=== PATIENT | female | born 1970 | race Caucasian/White ===

== ENCOUNTER 2016-07-17 19:34 | Emergency (ER) | payer MEDICAID ==
[~2016-07-17] VITALS: Ht 152.4 cm; Wt 74.8 kg
[~2016-07-17 19:34] MED LIST: CYCL-10 PO; GABA300T25 PO; LORA-258 PO; NAPR375T2 PO; PRO-AIR INH; PROP1TAB3 PO; SERT50TA PO; VALA500T PO; ZOLP10TA2 PO; ZOLP5TAB2 PO
[2016-07-17 19:51] VITALS: BP 128/92; PULSE 102; RESP 18; TEMP 97.6; O2SAT 98
--- NOTE | 2016-07-17 19:55 | NUR ---
Patient to ER bed 6 to gown for evaluation. Side rails up. Report given to Zay CAMARGO. Placed by Ishaan CAMARGO.
--- NOTE | 2016-07-17 20:00 | NUR ---
Pt states that on wednesday she had a steriod injection in her lower back and the following day she started having 10/10 lower back pain that shoots down her legs. This was her first show for slipped disk. Pt states she hasn't been to sleep or eat. She staes she has been getting chills and night sweats. Skin warm, dry, and normal. AAOx4. Will continue to monitor. No other injuries or complaints mentioned/noted. No distress noted.
--- NOTE | 2016-07-17 21:10 | NUR ---
ER Dr. Walker at bedside examining patient.
[2016-07-17] MEDS ORDERED: DIPHENHYDRAMINE HCL 50 MG CAPSULE PO ONE (21:30)
[2016-07-17] MEDS ORDERED: KETOROLAC TROMETHAMINE 60 MG/2 ML VIAL IM ONE (21:30)
[2016-07-17 21:49] VITALS: BP 128/92; PULSE 90; RESP 18; TEMP 97.6; O2SAT 98
--- NOTE | 2016-07-17 21:49 | NUR ---
Patient given written and verbal discharge instructions and verbalizes understanding. ER MD discussed with patient the results and treatment provided. Patient in stable condition. ID arm band removed. IV catheter removed intact and dressing applied, no active bleeding. Patient educated on pain management and to follow up with PMD. Pain Scale 2/10. Opportunity for questions provided and answered.
== END 2016-07-17 21:49 | disposition home or self-care (01) ==
LOC: SED 19:34
DX: M54.5 Low back pain (principal); G89.29 Other chronic pain; J45.909 Unspecified asthma, uncomplicated; F32.9 Major depressive disorder, single episode, unspecified; Z88.5 Allergy status to narcotic agent
CPT/HCPCS: 96372; 99283; J1885; Q0163

== ENCOUNTER 2016-07-30 22:33 | Emergency (ER) | payer MEDICAID ==
[~2016-07-30] VITALS: Ht 154.9 cm; Wt 68.0 kg
[2016-07-30 22:37] VITALS: BP 123/61; PULSE 102; RESP 20; TEMP 97.2; O2SAT 100
--- NOTE | 2016-07-30 22:40 | NUR ---
Patient to ER bed 2 to gown for evaluation. Side rails up. Report given to Sherry CAMARGO.
--- NOTE | 2016-07-30 22:54 | NUR ---
Patient to ER C/O severe RUQ pain 02/07 with sudden onset resulting in abdominal bloating and distension. Patient states that she did not ate anything fatty, mild nausea, no vomiting. States that in the last 2 years she had some benign abdominal tumors which were removed 1 year ago and fears that the tumors may be back. Patient C/O SOB due to abdominal pressure, chest pressure non-radiating and lower back pain. Denies constipation/diarrhea. AAOx4, unlabored breathing, no signs of acute distress.
--- NOTE | 2016-07-30 22:57 | NUR ---
ER at bedside examining patient.
[2016-07-30] MEDS ORDERED: NACL 0.9% 1,000 ML IV ONE (23:15)
[2016-07-30] MEDS ORDERED: DIAZEPAM 10 MG/2 ML DISP.SYRIN IVP ONE (23:15)
[2016-07-30 23:18] LABS: BILIRUBIN,URINE NEGATIVE (NEGATIVE); COLOR,URINE YELLOW (YELLOW); GLUCOSE,URINE NEGATIVE (NEGATIVE); KETONES,URINE NEGATIVE (NEGATIVE); LEUKOCYTE ESTERASE ,URINE TRACE (NEGATIVE); NITRITE, URINE NEGATIVE (NEGATIVE); PH,URINE 7.5 (5.0-8.0); PROTEIN URINE NEGATIVE (NEGATIVE); UROBILINOGEN,URINE 0.2 (0.2-1.0)
--- NOTE | 2016-07-30 23:31 | NUR ---
# 22 gauge angiocath placed to left ac. Use of asceptic technique. Opsite placed over site. Blood return noted. Blood for lab drawn from site. Flushed with 10 cc of normal saline. No evidence of infiltration noted. Patient tolerated well.
[2016-07-30 23:42] LABS: EOSINOPHILS # (AUTO) 0.2 K/uL (0.0-0.4); MONOCYTES # (AUTO) 0.9 K/uL (0.0-1.0); NEUTROPHILS # (AUTO) 5.5 K/uL (1.8-7.7)
[2016-07-30 23:44] LABS: BLOOD, URINE TRACE (NEGATIVE); CLARITY/URINE HAZY (CLEAR)
[2016-07-30 23:45] LABS: BACTERIA,URINE MANY /HPF (None Seen); RBC,URINE 0-3 /HPF (0-3)
[2016-07-30] MEDS ORDERED: ONDANSETRON HCL 4 MG/2 ML VIAL IVP ONE (23:45)
[2016-07-30 23:46] LABS: MUCUS,URINE None Seen /LPF (None Seen)
[2016-07-30 23:50] LABS: BASOPHILS # (AUTO) 0.2 K/uL (0.0-0.2); BASOPHILS % (AUTO) 2.3 % (0.0-2.0); EOSINOPHILS % (AUTO) 1.9 % (0.0-4.0); HEMATOCRIT 38.2 % (36-48); HEMOGLOBIN 13.1 g/dL (12.0-16.0); LYMPHOCYTES # (AUTO) 2.1 K/uL (1.0-5.5); LYMPHOCYTES % (AUTO) 23.4 % (20.5-51.5); MEAN CORPUSCULAR HEMOGLOBIN 31 pg (27-31); MEAN CORPUSCULAR HGB CONC 34 % (32-36); MEAN CORPUSCULAR VOLUME 90 fL (79.0-98.0); MONOCYTES % (AUTO) 9.6 % (1.7-9.3); NEUTROPHILS % (AUTO) 62.8 % (40.0-70.0); PLATELET COUNT (AUTO) 202 K/uL (130-430); RED BLOOD CELL COUNT(AUTO) 4.24 MIL/uL (4.2-6.2); RED CELL DISTRIBUTION WIDTH 13.2 % (9.0-15.0); WHITE BLOOD COUNT (AUTO) 8.9 K/uL (4.8-10.8)
[2016-07-30 23:52] LABS: ANION GAP 6 (5-15); CALCIUM 9.1 mg/dL (8.4-11.0); CHLORIDE 106 mmol/L (98-107); CREATININE 0.91 mg/dL (0.55-1.30); GLUCOSE 101 mg/dL (70-99); POTASSIUM 3.4 mmol/L (3.5-5.1); SODIUM SERUM 140 mmol/L (136-145); UREA NITROGEN, BLOOD 16 mg/dL (8-21)
[2016-07-30 23:59] LABS: GFR AFRICAN AMERICAN 86 mL/min (>90)
[2016-07-31] LABS: ALANINE AMINOTRANSFERASE 37 U/L (12-78); ALBUMIN 3.5 g/dL (3.4-4.8); ASPARTATE AMINOTRANSFERASE 21 U/L (10-37); LIPASE 204 U/L (73-393); TOTAL BILIRUBIN 0.3 mg/dL (0.0-1.0); TOTAL PROTEIN, SERUM 6.9 g/dL (6.4-8.3)
--- NOTE | 2016-07-31 00:48 | NUR ---
Patient states that she feels much better, decrease in nausea and pain.
--- NOTE | 2016-07-31 01:09 | NUR ---
Patient given written and verbal discharge instructions and verbalizes understanding. ER MD Heredia discussed with patient the results and treatment provided. Patient in stable condition. ID arm band removed. IV catheter removed intact and dressing applied, no active bleeding. Rx of zofran, cipro, flexeril, motrin given. Patient educated on pain management and to follow up with PMD. Pain Scale 0/10. Opportunity for questions provided and answered.
[2016-07-31 01:33] VITALS: BP 131/91; PULSE 104; RESP 20; TEMP 98; O2SAT 96
== END 2016-07-31 01:09 | disposition home or self-care (01) ==
LOC: SED 22:33
DX: N39.0 Urinary tract infection, site not specified (principal); R07.89 Other chest pain; J45.909 Unspecified asthma, uncomplicated; Z88.5 Allergy status to narcotic agent
CPT/HCPCS: 36415; 71010; 80053; 81000; 81025; 83690; 84484; 85025; 87086; 93005; 96361; 96374; 96375; 99285; J2405; J3360; J7030

== ENCOUNTER 2016-09-18 12:07 | Emergency (ER) | payer MEDICAID ==
[~2016-09-18] VITALS: Ht 165.1 cm; Wt 72.6 kg
[~2016-09-18 12:07] MED LIST changes: -LORA-258 PO; -PROP1TAB3 PO; -VALA500T PO; -ZOLP10TA2 PO; -ZOLP5TAB2 PO
[2016-09-18 12:10] VITALS: BP_SYST 123
[2016-09-18] MEDS ORDERED: ALBUTEROL SULFATE 0.083% 2.5 MG/3 ML VIAL.NEB INH ONE ×2 (12:28→12:30)
[2016-09-18] MEDS ORDERED: IPRATROPIUM BROM 0.5 MG/2.5 ML VIAL.NEB (ATROVENT) INH ONE ×2 (12:28→12:30)
[2016-09-18] MEDS: PREDNISONE 20 MG TABLET PO ONE (12:49)
[2016-09-18] MEDS: DEXAMETHASONE SOD PHOSPHATE 10 MG/ML VIAL IM ONE (13:41)
[2016-09-18 14:15] VITALS: BP_SYST 123
== END 2016-09-18 14:15 | disposition home or self-care (01) ==
LOC: SED 12:07
DX: J45.901 Unspecified asthma with (acute) exacerbation (principal); Z88.5 Allergy status to narcotic agent
CPT/HCPCS: 96372; 99283; J1100; J7512

== ENCOUNTER 2016-10-27 17:44 | Emergency (ER) | payer MEDICAID ==
[~2016-10-27] VITALS: Ht 154.9 cm; Wt 70.3 kg
[2016-10-27 18:07] VITALS: BP_SYST 115
[2016-10-27] MEDS ORDERED: PIPERACILLIN/TAZO 3.38 GM in NS 50 ML IV ONE (18:45)
[2016-10-27] MEDS ORDERED: LORazepam 2 MG/ML VIAL (FOR ER USE) IVP ONE (18:45)
[2016-10-27] MEDS ORDERED: PIPERACILLIN/TAZOBACTAM 3.375 GM/VIAL (ZOSYN) IV ONE (19:27)
[2016-10-27 19:28] LABS: BASOPHILS # (AUTO) 0.1 K/uL (0.0-0.2); BASOPHILS % (AUTO) 0.8 % (0.0-2.0); EOSINOPHILS # (AUTO) 0.4 K/uL (0.0-0.4); EOSINOPHILS % (AUTO) 4.6 % (0.0-4.0); HEMATOCRIT 40.9 % (36-48); HEMOGLOBIN 13.8 g/dL (12.0-16.0); LYMPHOCYTES # (AUTO) 2.2 K/uL (1.0-5.5); LYMPHOCYTES % (AUTO) 24.8 % (20.5-51.5); MEAN CORPUSCULAR HEMOGLOBIN 30 pg (27-31); MEAN CORPUSCULAR HGB CONC 34 % (32-36); MEAN CORPUSCULAR VOLUME 90 fL (79.0-98.0); MONOCYTES # (AUTO) 0.6 K/uL (0.0-1.0); MONOCYTES % (AUTO) 6.5 % (1.7-9.3); NEUTROPHILS # (AUTO) 5.6 K/uL (1.8-7.7); NEUTROPHILS % (AUTO) 63.3 % (40.0-70.0); PLATELET COUNT (AUTO) 263 K/uL (130-430); RED BLOOD CELL COUNT(AUTO) 4.55 MIL/uL (4.2-6.2); RED CELL DISTRIBUTION WIDTH 12.2 % (9.0-15.0); WHITE BLOOD COUNT (AUTO) 8.9 K/uL (4.8-10.8)
[2016-10-27 19:54] LABS: CALCIUM 9.1 mg/dL (8.4-11.0); CREATININE 0.98 mg/dL (0.55-1.30); POTASSIUM 3.8 mmol/L (3.5-5.1)
[2016-10-27 19:58] LABS: ALBUMIN 3.9 g/dL (3.4-4.8); TOTAL BILIRUBIN 0.3 mg/dL (0.0-1.0); TOTAL PROTEIN, SERUM 7.2 g/dL (6.4-8.3)
[2016-10-27] MEDS ORDERED: HYDROmorphone 1 MG INJ. 1 MG/ML AMPUL IVP ONE (20:15)
[2016-10-27] MEDS ORDERED: ONDANSETRON HCL 4 MG/2 ML VIAL IVP ONE (20:15)
[2016-10-27 20:35] LABS: BILIRUBIN,URINE NEGATIVE (NEGATIVE); BLOOD, URINE NEGATIVE (NEGATIVE); CLARITY/URINE CLEAR (CLEAR); COLOR,URINE YELLOW (YELLOW); GLUCOSE,URINE NEGATIVE (NEGATIVE); KETONES,URINE NEGATIVE (NEGATIVE); LEUKOCYTE ESTERASE ,URINE NEGATIVE (NEGATIVE); NITRITE, URINE NEGATIVE (NEGATIVE); PROTEIN URINE NEGATIVE (NEGATIVE); UROBILINOGEN,URINE 0.2 (0.2-1.0)
[2016-10-27 20:52] LABS: BACTERIA,URINE MODERATE /HPF (None Seen); MUCUS,URINE 2+ /LPF (None Seen); RBC,URINE 0-3 /HPF (0-3); WBC,URINE 0-3 /HPF (0-3)
[2016-10-27 21:28] VITALS: BP_SYST 120
== END 2016-10-27 21:28 | disposition home or self-care (01) ==
LOC: SED 17:44
DX: R10.9 Unspecified abdominal pain (principal); G89.29 Other chronic pain; M54.9 Dorsalgia, unspecified; R05 Cough; J45.909 Unspecified asthma, uncomplicated; Z88.5 Allergy status to narcotic agent; Z90.710 Acquired absence of both cervix and uterus
CPT/HCPCS: 36415; 71010; 74176; 80053; 81000; 83605; 83690; 85025; 85610; 87040; 87086; 93005; 96365; 96374; 96375; 99285; J1170; J2060; J2405; J2543

== ENCOUNTER 2016-12-22 19:29 | Emergency (ER) | payer MEDICAID ==
[~2016-12-22] VITALS: Ht 154.9 cm; Wt 68.0 kg
[2016-12-22 19:29] VITALS: BP_SYST 138
[2016-12-22] MEDS ORDERED: LORazepam 1 MG TABLET PO ONE (20:15)
[2016-12-22] MEDS ORDERED: KETOROLAC TROMETHAMINE 60 MG/2 ML VIAL IM ONE (21:00)
[2016-12-22 21:35] VITALS: BP_SYST 102
== END 2016-12-22 21:35 | disposition home or self-care (01) ==
LOC: SED 19:29
DX: F41.9 Anxiety disorder, unspecified (principal); J45.909 Unspecified asthma, uncomplicated; F32.9 Major depressive disorder, single episode, unspecified; Z88.5 Allergy status to narcotic agent
CPT/HCPCS: 71010; 93005; 96372; 99284; J1885

== ENCOUNTER 2017-02-10 21:01 | Emergency (ER) | payer MEDICAID ==
[~2017-02-10] VITALS: Ht 152.4 cm; Wt 66.2 kg
[2017-02-10 21:01] VITALS: BP_SYST 119
--- NOTE | 2017-02-10 21:05 | NUR ---
Patient to ER bed 2 to gown for evaluation. Side rails up. Report given to Zay CAMARGO.
--- NOTE | 2017-02-10 21:10 | NUR ---
Pt states that since yesterday morning she has been having epigastic aching, burning pain that radiates to the sides. Pt has been very nauseous with no vomitting. Pt has trouble ambulating and breathing due to pain. Pt reports dizziness when standing up. Pt is guarding abd. Will continue to monitor. No other injuries or complaints mentioned/noted. No distress noted.
--- NOTE | 2017-02-10 21:20 | NUR ---
# 20 gauge angiocath placed to L AC. Use of asceptic technique. Opsite placed over site. Blood return noted. Blood for lab drawn from site. Flushed with 10 cc of normal saline. No evidence of infiltration noted. Patient tolerated well.
[2017-02-10 22:13] LABS: BILIRUBIN,URINE NEGATIVE (NEGATIVE); CLARITY/URINE HAZY (CLEAR); COLOR,URINE YELLOW (YELLOW); GLUCOSE,URINE NEGATIVE (NEGATIVE); KETONES,URINE NEGATIVE (NEGATIVE); LEUKOCYTE ESTERASE ,URINE NEGATIVE (NEGATIVE); NITRITE, URINE NEGATIVE (NEGATIVE); PROTEIN URINE NEGATIVE (NEGATIVE); UROBILINOGEN,URINE 0.2 (0.2-1.0)
--- NOTE | 2017-02-10 22:15 | NUR ---
ER Dr. Eastman at bedside examining patient.
[2017-02-10] MEDS ORDERED: NACL 0.9% 1,000 ML IV ONE (22:21)
[2017-02-10 22:28] LABS: BLOOD, URINE TRACE (NEGATIVE)
[2017-02-10] MEDS ORDERED: ONDANSETRON HCL 4 MG/2 ML VIAL IVP ONE (22:30)
[2017-02-10 22:46] LABS: BASOPHILS # (AUTO) 0.1 K/uL (0.0-0.2); BASOPHILS % (AUTO) 0.7 % (0.0-2.0); EOSINOPHILS # (AUTO) 0.3 K/uL (0.0-0.4); EOSINOPHILS % (AUTO) 3.3 % (0.0-4.0); HEMOGLOBIN 14.3 g/dL (12.0-16.0); LYMPHOCYTES # (AUTO) 3.4 K/uL (1.0-5.5); LYMPHOCYTES % (AUTO) 33.7 % (20.5-51.5); MEAN CORPUSCULAR HEMOGLOBIN 30 pg (27-31); MEAN CORPUSCULAR HGB CONC 34 % (32-36); MEAN CORPUSCULAR VOLUME 89 fL (79.0-98.0); MONOCYTES # (AUTO) 0.7 K/uL (0.0-1.0); MONOCYTES % (AUTO) 7.3 % (1.7-9.3); NEUTROPHILS # (AUTO) 5.6 K/uL (1.8-7.7); PLATELET COUNT (AUTO) 284 K/uL (130-430); RED BLOOD CELL COUNT(AUTO) 4.74 MIL/uL (4.2-6.2); RED CELL DISTRIBUTION WIDTH 11.8 % (9.0-15.0); WHITE BLOOD COUNT (AUTO) 10.1 K/uL (4.8-10.8)
[2017-02-10 22:51] LABS: PROTHROMBIN TIME 10.5 SECS (9.5-12.5)
--- NOTE | 2017-02-10 23:00 | NUR ---
No adverse reactions noted. Will continue to monitor.
[2017-02-10 23:01] LABS: BACTERIA,URINE MANY /HPF (None Seen); MUCUS,URINE 1+ /LPF (None Seen); RBC,URINE 0-3 /HPF (0-3); URIC ACID CRYSTALS,URINE 0-10 /HPF (None Seen); WBC,URINE 0-3 /HPF (0-3)
[2017-02-10] MEDS ORDERED: KETOROLAC TROMETHAMINE 30 MG VIAL IVP ONE (23:15)
[2017-02-10 23:24] LABS: ANION GAP 12 (5-15); CALCIUM 9.9 mg/dL (8.4-11.0); CHLORIDE 104 mmol/L (98-107); CREATININE 0.94 mg/dL (0.55-1.30); GLUCOSE 95 mg/dL (70-99); POTASSIUM 3.5 mmol/L (3.5-5.1); SODIUM SERUM 141 mmol/L (136-145); UREA NITROGEN, BLOOD 9 mg/dL (8-21)
[2017-02-10 23:27] LABS: GFR AFRICAN AMERICAN 83 mL/min (>90)
[2017-02-10 23:33] LABS: ALANINE AMINOTRANSFERASE 43 U/L (12-78); AMYLASE 67 U/L (0-100); ASPARTATE AMINOTRANSFERASE 23 U/L (10-37); LIPASE 181 U/L (73-393); TOTAL BILIRUBIN 0.3 mg/dL (0.0-1.0)
--- NOTE | 2017-02-10 23:40 | NUR ---
Pt asked for muscle relaxer. Dr. Eastman made aware.
[2017-02-11] MEDS ORDERED: HYDROmorphone 1 MG INJ. 1 MG/ML AMPUL IVP ONE (00:45)
[2017-02-11 01:27] VITALS: BP_SYST 97
== END 2017-02-10 23:40 | disposition home or self-care (01) ==
LOC: SED 21:01
DX: K20.8 Other esophagitis (principal); J45.909 Unspecified asthma, uncomplicated; F32.9 Major depressive disorder, single episode, unspecified; Z88.5 Allergy status to narcotic agent
CPT/HCPCS: 36415; 74176; 80053; 81000; 82150; 83690; 84484; 85025; 85610; 85730; 87086; 93005; 96360; 96374; 96375; 99285; J1885; J2405; J7030; 96361; J1170

== ENCOUNTER 2017-05-26 18:31 | Emergency (ER) | payer MEDICAID ==
[~2017-05-26] VITALS: Ht 154.9 cm; Wt 65.8 kg
[2017-05-26 19:51] VITALS: BP_SYST 120
[2017-05-26] MEDS ORDERED: LORA1TAB PO (19:58)
[2017-05-26] MEDS ORDERED: ONDA8TAB9 PO (19:59)
[2017-05-26] MEDS ORDERED: IPRATROPIUM/ALBUTEROL SULFATE 3 ML AMPUL.NEB INH ONE (20:15)
[2017-05-26] MEDS ORDERED: DEXAMETHASONE SOD PHOSPHATE 10 MG/ML VIAL IM ONE (20:15)
[2017-05-26 21:04] VITALS: BP_SYST 120
== END 2017-05-26 21:04 | disposition still patient (30) ==
LOC: SED 18:31
DX: J01.90 Acute sinusitis, unspecified (principal); J45.909 Unspecified asthma, uncomplicated; F41.9 Anxiety disorder, unspecified; Z90.89 Acquired absence of other organs; Z90.710 Acquired absence of both cervix and uterus; Z88.5 Allergy status to narcotic agent
CPT/HCPCS: 71010; 94640; 99283; J1100

== ENCOUNTER 2017-05-30 12:52 | Emergency (ER) | payer MEDICAID ==
[~2017-05-30] VITALS: Ht 154.9 cm; Wt 65.8 kg
[2017-05-30 12:52] VITALS: BP_SYST 114
[~2017-05-30 12:52] MED LIST changes: -GABA300T25 PO; +LORA1TAB PO; -NAPR375T2 PO; +ONDA8TAB9 PO; -PRO-AIR INH; -SERT50TA PO
[2017-05-30 13:55] VITALS: BP_SYST 118
[2017-05-30] MEDS ORDERED: KETOROLAC TROMETHAMINE 60 MG/2 ML VIAL IM ONE (14:00)
== END 2017-05-30 13:55 | disposition home or self-care (01) ==
LOC: SED 12:52
DX: J01.00 Acute maxillary sinusitis, unspecified (principal); J45.909 Unspecified asthma, uncomplicated; Z90.89 Acquired absence of other organs; Z90.710 Acquired absence of both cervix and uterus; Z88.5 Allergy status to narcotic agent
CPT/HCPCS: 99283

== ENCOUNTER 2017-11-22 14:35 | Emergency (ER) | payer MEDICAID ==
[~2017-11-22] VITALS: Ht 154.9 cm; Wt 64.0 kg
[2017-11-22 14:46] VITALS: BP_SYST 117
[2017-11-22] MEDS ORDERED: CEPHALEXIN 500 MG CAPSULE PO ONE (16:45)
[2017-11-22] MEDS ORDERED: LIDOCAINE/EPI 2% 1:100000 20 ML VIAL INJ ONE (16:45)
[2017-11-22] MEDS ORDERED: fentaNYL CITRATE/PF 100 MCG/2 ML AMP IM ONE (16:45)
[2017-11-22] MEDS ORDERED: SULFAMETHOXAZOLE/TRIMETHOPR DS 1 TABLET PO ONE (16:45)
[2017-11-22] MEDS ORDERED: LIDOCAINE/PRILOCAINE 5 GM CREAM (EMLA) TP ONE (16:45)
[2017-11-22] MEDS ORDERED: SODIUM BICARBONATE 8.4% VIAL 50 MEQ/50 ML VIAL INJ ONE (17:15)
[2017-11-22] MEDS ORDERED: ONDANSETRON 4 MG ODT TAB PO ONE (18:30)
[2017-11-22] MEDS ORDERED: ONDANSETRON 4 MG ODT TAB ONE (18:32)
[2017-11-22 18:57] VITALS: BP_SYST 115
== END 2017-11-22 18:57 | disposition home or self-care (01) ==
LOC: SED 14:35
DX: L02.412 Cutaneous abscess of left axilla (principal); R03.0 Elevated blood-pressure reading, without diagnosis of hypertension; J45.909 Unspecified asthma, uncomplicated; F41.9 Anxiety disorder, unspecified; F32.9 Major depressive disorder, single episode, unspecified; Z90.710 Acquired absence of both cervix and uterus; Z79.899 Other long term (current) drug therapy
CPT/HCPCS: 10060; 96372; 99284; J3010; Q0162

== ENCOUNTER 2017-11-22 23:19 | Emergency (ER) | payer MEDICAID ==
[~2017-11-22] VITALS: Ht 154.9 cm; Wt 64.0 kg
[2017-11-22 23:29] VITALS: BP_SYST 139
[2017-11-22] MEDS ORDERED: fentaNYL CITRATE/PF 100 MCG/2 ML AMP IVP ONE (23:45)
[2017-11-22] MEDS ORDERED: CLINDAMYCIN 900 mg/50mL D5W 50 ML IV ONE (23:45)
[2017-11-22] MEDS ORDERED: NACL 0.9% 1,000 ML IV ONE (23:45)
[2017-11-22] MEDS ORDERED: LORazepam 2 MG/ML VIAL (FOR ER USE) IVP ONE (23:45)
[2017-11-23 00:15] LABS: BASOPHILS # (AUTO) 0.2 K/uL (0.0-0.2); BASOPHILS % (AUTO) 1.1 % (0.0-2.0); EOSINOPHILS # (AUTO) 0.1 K/uL (0.0-0.4); EOSINOPHILS % (AUTO) 0.4 % (0.0-4.0); HEMATOCRIT 38.3 % (36-48); HEMOGLOBIN 13.2 g/dL (12.0-16.0); LYMPHOCYTES % (AUTO) 6.3 % (20.5-51.5); MEAN CORPUSCULAR HEMOGLOBIN 31 pg (27-31); MEAN CORPUSCULAR HGB CONC 34 % (32-36); MEAN CORPUSCULAR VOLUME 91 fL (79.0-98.0); MONOCYTES % (AUTO) 5.9 % (1.7-9.3); NEUTROPHILS % (AUTO) 86.3 % (40.0-70.0); PLATELET COUNT (AUTO) 249 K/uL (130-430); RED BLOOD CELL COUNT(AUTO) 4.22 MIL/uL (4.2-6.2); RED CELL DISTRIBUTION WIDTH 12.3 % (9.0-15.0); WHITE BLOOD COUNT (AUTO) 16.3 K/uL (4.8-10.8)
[2017-11-23 00:26] LABS: CALCIUM 8.3 mg/dL (8.4-11.0); CREATININE 1.04 mg/dL (0.55-1.30); POTASSIUM 3.9 mmol/L (3.5-5.1)
[2017-11-23 00:40] LABS: ALBUMIN 3.6 g/dL (3.4-4.8); TOTAL BILIRUBIN 0.3 mg/dL (0.0-1.0)
[2017-11-23] MEDS ORDERED: fentaNYL CITRATE/PF 100 MCG/2 ML AMP IVP ONE (00:45)
[2017-11-23 01:10] VITALS: BP_SYST 125
== END 2017-11-23 01:10 | disposition home or self-care (01) ==
LOC: SED 23:19
DX: L02.412 Cutaneous abscess of left axilla (principal); J45.909 Unspecified asthma, uncomplicated; F32.9 Major depressive disorder, single episode, unspecified; F41.9 Anxiety disorder, unspecified; Z79.899 Other long term (current) drug therapy; Z90.710 Acquired absence of both cervix and uterus
CPT/HCPCS: 36415; 80053; 85025; 96365; 96375; 99284; J2060; J3010; J3490; J7030

== ENCOUNTER 2018-01-13 23:08 | Emergency (ER) | payer MEDICAID ==
[~2018-01-13] VITALS: Ht 154.9 cm; Wt 64.4 kg
[2018-01-13 23:28] VITALS: BP_SYST 155
[2018-01-14] MEDS ORDERED: NACL 0.9% 1,000 ML IV ONE (01:16)
[2018-01-14 01:26] LABS: BASOPHILS # (AUTO) 0.1 K/uL (0.0-0.2); BASOPHILS % (AUTO) 0.8 % (0.0-2.0); EOSINOPHILS # (AUTO) 0.5 K/uL (0.0-0.4); EOSINOPHILS % (AUTO) 5.9 % (0.0-4.0); HEMATOCRIT 39.8 % (36-48); HEMOGLOBIN 13.5 g/dL (12.0-16.0); LYMPHOCYTES # (AUTO) 2.4 K/uL (1.0-5.5); LYMPHOCYTES % (AUTO) 30.1 % (20.5-51.5); MEAN CORPUSCULAR HEMOGLOBIN 31 pg (27-31); MEAN CORPUSCULAR HGB CONC 34 % (32-36); MEAN CORPUSCULAR VOLUME 90 fL (79.0-98.0); MONOCYTES # (AUTO) 0.5 K/uL (0.0-1.0); MONOCYTES % (AUTO) 6.5 % (1.7-9.3); NEUTROPHILS # (AUTO) 4.6 K/uL (1.8-7.7); NEUTROPHILS % (AUTO) 56.7 % (40.0-70.0); PLATELET COUNT (AUTO) 265 K/uL (130-430); RED CELL DISTRIBUTION WIDTH 11.9 % (9.0-15.0); WHITE BLOOD COUNT (AUTO) 8.1 K/uL (4.8-10.8)
[2018-01-14] MEDS ORDERED: KETOROLAC TROMETHAMINE 30 MG VIAL IVP ONE (01:30)
[2018-01-14] MEDS ORDERED: ONDANSETRON HCL 4 MG/2 ML VIAL IVP ONE (01:30)
[2018-01-14 01:31] LABS: BILIRUBIN,URINE NEGATIVE (NEGATIVE); BLOOD, URINE NEGATIVE (NEGATIVE); CALCIUM 9.9 mg/dL (8.4-11.0); CLARITY/URINE CLEAR (CLEAR); COLOR,URINE YELLOW (YELLOW); CREATININE 0.98 mg/dL (0.55-1.30); GLUCOSE,URINE NEGATIVE (NEGATIVE); KETONES,URINE NEGATIVE (NEGATIVE); LEUKOCYTE ESTERASE ,URINE NEGATIVE (NEGATIVE); NITRITE, URINE NEGATIVE (NEGATIVE); PH,URINE 7.5 (5.0-8.0); POTASSIUM 3.6 mmol/L (3.5-5.1); PROTEIN URINE NEGATIVE (NEGATIVE); UROBILINOGEN,URINE 0.2 (0.2-1.0)
[2018-01-14 01:36] LABS: ALBUMIN 3.8 g/dL (3.4-4.8); TOTAL BILIRUBIN 0.3 mg/dL (0.0-1.0)
[2018-01-14] MEDS ORDERED: IOHEXOL 100 ML IV ONE (01:54)
[2018-01-14] MEDS ORDERED: PROCHLORPERAZINE EDISYLATE 10 MG/2 ML VIAL IVP ONE (03:15)
[2018-01-14] MEDS ORDERED: DIPHENHYDRAMINE INJ 50 MG/ML VIAL IVP ONE ×2 (03:15→03:45)
[2018-01-14 04:10] VITALS: BP_SYST 117
== END 2018-01-14 04:10 | disposition home or self-care (01) ==
LOC: SED 23:08
DX: R10.11 Right upper quadrant pain (principal); R11.0 Nausea; J45.909 Unspecified asthma, uncomplicated; F32.9 Major depressive disorder, single episode, unspecified; F41.9 Anxiety disorder, unspecified; Z90.89 Acquired absence of other organs; Z90.710 Acquired absence of both cervix and uterus
CPT/HCPCS: 36415; 74177; 80053; 81003; 81025; 85025; 96361; 96374; 96375; 99285; J0780; J1200; J1885; J2405; J7030; Q9967

== ENCOUNTER 2018-02-01 20:39 | Emergency (ER) | payer MEDICAID ==
[~2018-02-01] VITALS: Ht 154.9 cm; Wt 62.6 kg
[2018-02-01 20:49] VITALS: BP_SYST 120
[2018-02-01] MEDS ORDERED: NACL 0.9% 1,000 ML IV ONE (20:49)
[2018-02-01] MEDS ORDERED: ASPIRIN 81 MG TAB.CHEW PO ONE (21:00)
[2018-02-01] MEDS ORDERED: LORazepam 2 MG/ML VIAL (FOR ER USE) IVP ONE (21:15)
[2018-02-01 21:19] LABS: BASOPHILS # (AUTO) 0.1 K/uL (0.0-0.2); BASOPHILS % (AUTO) 1.1 % (0.0-2.0); EOSINOPHILS # (AUTO) 0.7 K/uL (0.0-0.4); HEMATOCRIT 39.8 % (36-48); HEMOGLOBIN 13.7 g/dL (12.0-16.0); LYMPHOCYTES # (AUTO) 2.5 K/uL (1.0-5.5); LYMPHOCYTES % (AUTO) 31.7 % (20.5-51.5); MEAN CORPUSCULAR HEMOGLOBIN 31 pg (27-31); MEAN CORPUSCULAR HGB CONC 34 % (32-36); MEAN CORPUSCULAR VOLUME 91 fL (79.0-98.0); MONOCYTES # (AUTO) 0.5 K/uL (0.0-1.0); MONOCYTES % (AUTO) 6.8 % (1.7-9.3); NEUTROPHILS % (AUTO) 51.4 % (40.0-70.0); PLATELET COUNT (AUTO) 240 K/uL (130-430); RED BLOOD CELL COUNT(AUTO) 4.38 MIL/uL (4.2-6.2); WHITE BLOOD COUNT (AUTO) 7.8 K/uL (4.8-10.8)
[2018-02-01 21:22] LABS: CALCIUM 9.4 mg/dL (8.4-11.0); CREATININE 0.87 mg/dL (0.55-1.30); POTASSIUM 3.4 mmol/L (3.5-5.1)
[2018-02-01 21:27] LABS: PROTHROMBIN TIME 10.3 SECS (9.5-12.5)
[2018-02-01 21:33] LABS: ALBUMIN 3.8 g/dL (3.4-4.8); TOTAL BILIRUBIN 0.3 mg/dL (0.0-1.0)
[2018-02-01] MEDS ORDERED: ACETAMINOPHEN 500 MG TABLET PO ONE (22:45)
[2018-02-01 23:03] LABS: BILIRUBIN,URINE NEGATIVE (NEGATIVE); BLOOD, URINE NEGATIVE (NEGATIVE); CLARITY/URINE CLEAR (CLEAR); COLOR,URINE YELLOW (YELLOW); GLUCOSE,URINE NEGATIVE (NEGATIVE); KETONES,URINE NEGATIVE (NEGATIVE); LEUKOCYTE ESTERASE ,URINE NEGATIVE (NEGATIVE); NITRITE, URINE NEGATIVE (NEGATIVE); PROTEIN URINE NEGATIVE (NEGATIVE); UROBILINOGEN,URINE 0.2 (0.2-1.0)
[2018-02-01] MEDS ORDERED: LORazepam 1 MG TABLET PO ONE (23:15)
[2018-02-01 23:49] VITALS: BP_SYST 114
== END 2018-02-01 23:49 | disposition home or self-care (01) ==
LOC: SED 20:39
DX: R07.89 Other chest pain (principal); F41.9 Anxiety disorder, unspecified; M79.7 Fibromyalgia; J45.909 Unspecified asthma, uncomplicated; Z88.8 Allergy status to other drugs, medicaments and biological substances; Z90.49 Acquired absence of other specified parts of digestive tract; Z90.710 Acquired absence of both cervix and uterus
CPT/HCPCS: 36415; 71045; 80053; 81003; 82150; 82550; 83690; 84484; 85025; 85610; 85730; 93005; 96374; 99285; J2060; J7030

== ENCOUNTER 2018-06-12 12:01 | Emergency (ER) | payer MEDICAID ==
[~2018-06-12] VITALS: Ht 154.9 cm; Wt 67.1 kg
[2018-06-12 12:02] VITALS: BP_SYST 126
[2018-06-12] MEDS ORDERED: NACL 0.9% 1,000 ML IV ONE (12:12)
[2018-06-12] MEDS ORDERED: ASPIRIN 81 MG TAB.CHEW PO ONE (12:15)
[2018-06-12 12:52] LABS: BASOPHILS # (AUTO) 0.1 K/uL (0.0-0.2); BASOPHILS % (AUTO) 1.5 % (0.0-2.0); EOSINOPHILS # (AUTO) 0.2 K/uL (0.0-0.4); EOSINOPHILS % (AUTO) 3.7 % (0.0-4.0); HEMATOCRIT 42.1 % (36-48); HEMOGLOBIN 14.1 g/dL (12.0-16.0); LYMPHOCYTES # (AUTO) 1.8 K/uL (1.0-5.5); LYMPHOCYTES % (AUTO) 28.8 % (20.5-51.5); MEAN CORPUSCULAR HEMOGLOBIN 31 pg (27-31); MEAN CORPUSCULAR HGB CONC 34 % (32-36); MEAN CORPUSCULAR VOLUME 91 fL (79.0-98.0); MONOCYTES # (AUTO) 0.4 K/uL (0.0-1.0); MONOCYTES % (AUTO) 6.3 % (1.7-9.3); NEUTROPHILS # (AUTO) 3.8 K/uL (1.8-7.7); NEUTROPHILS % (AUTO) 59.7 % (40.0-70.0); PLATELET COUNT (AUTO) 260 K/uL (130-430); RED BLOOD CELL COUNT(AUTO) 4.61 MIL/uL (4.2-6.2); RED CELL DISTRIBUTION WIDTH 11.9 % (9.0-15.0); WHITE BLOOD COUNT (AUTO) 6.3 K/uL (4.8-10.8)
[2018-06-12 13:02] LABS: CALCIUM 9.2 mg/dL (8.4-11.0); CREATININE 0.92 mg/dL (0.55-1.30); POTASSIUM 3.7 mmol/L (3.5-5.1)
[2018-06-12 13:06] LABS: PROTHROMBIN TIME 10.1 SECS (9.5-12.5)
[2018-06-12 13:07] LABS: ALBUMIN 3.9 g/dL (3.4-4.8); TOTAL BILIRUBIN 0.4 mg/dL (0.0-1.0)
[2018-06-12 14:05] VITALS: BP_SYST 122
== END 2018-06-12 14:05 | disposition home or self-care (01) ==
LOC: SED 12:01
DX: R07.89 Other chest pain (principal); F41.9 Anxiety disorder, unspecified; J45.909 Unspecified asthma, uncomplicated; F43.10 Post-traumatic stress disorder, unspecified; F32.9 Major depressive disorder, single episode, unspecified; Z88.8 Allergy status to other drugs, medicaments and biological substances
CPT/HCPCS: 36415; 71045; 80053; 82150; 82550; 83605; 83690; 84484; 85025; 85610; 85730; 87040; 99284; J7030; 93005

== ENCOUNTER 2018-06-13 14:29 | Emergency (ER) | payer MEDICAID ==
[~2018-06-13] VITALS: Ht 154.9 cm; Wt 66.7 kg
[2018-06-13 14:46] VITALS: BP_SYST 133
[2018-06-13] MEDS ORDERED: IOHEXOL 100 ML IV ONE (14:52)
[2018-06-13] MEDS ORDERED: LORazepam 2 MG/ML VIAL (FOR ER USE) IVP ONE (15:30)
[2018-06-13] MEDS ORDERED: FLUORESCEIN SODIUM 1 MG OPHTHALMIC STRIP OP ONE (16:45)
[2018-06-13] MEDS ORDERED: PROPARACAINE (OPTHANINE 0.5%) 15 ML DROPS OP ONE (16:45)
[2018-06-13 18:33] VITALS: BP_SYST 130
== END 2018-06-13 18:33 | disposition home or self-care (01) ==
LOC: SED 14:29
DX: H10.9 Unspecified conjunctivitis (principal); J45.909 Unspecified asthma, uncomplicated; F32.9 Major depressive disorder, single episode, unspecified; R03.0 Elevated blood-pressure reading, without diagnosis of hypertension; Z88.8 Allergy status to other drugs, medicaments and biological substances
CPT/HCPCS: 71260; 96374; 99284; J2060; Q9967

== ENCOUNTER 2018-06-15 13:19 | Emergency (ER) | payer MEDICAID ==
[~2018-06-15] VITALS: Ht 154.9 cm; Wt 66.7 kg
[2018-06-15 13:37] VITALS: BP_SYST 105
[2018-06-15] MEDS ORDERED: ALBUTEROL SULFATE 0.083% 2.5 MG/3 ML VIAL.NEB IH ONE (14:00)
[2018-06-15] MEDS ORDERED: IPRATROPIUM BROM 0.5 MG/2.5 ML VIAL.NEB (ATROVENT) IH ONE (14:00)
[2018-06-15 14:25] LABS: BASOPHILS # (AUTO) 0.1 K/uL (0.0-0.2); BASOPHILS % (AUTO) 0.6 % (0.0-2.0); EOSINOPHILS # (AUTO) 0.3 K/uL (0.0-0.4); EOSINOPHILS % (AUTO) 3.2 % (0.0-4.0); HEMATOCRIT 38.8 % (36-48); HEMOGLOBIN 13.1 g/dL (12.0-16.0); LYMPHOCYTES % (AUTO) 10.2 % (20.5-51.5); MEAN CORPUSCULAR HEMOGLOBIN 30 pg (27-31); MEAN CORPUSCULAR HGB CONC 34 % (32-36); MEAN CORPUSCULAR VOLUME 90 fL (79.0-98.0); MONOCYTES # (AUTO) 0.7 K/uL (0.0-1.0); MONOCYTES % (AUTO) 7.2 % (1.7-9.3); NEUTROPHILS # (AUTO) 7.5 K/uL (1.8-7.7); NEUTROPHILS % (AUTO) 78.8 % (40.0-70.0); PLATELET COUNT (AUTO) 236 K/uL (130-430); RED BLOOD CELL COUNT(AUTO) 4.32 MIL/uL (4.2-6.2); WHITE BLOOD COUNT (AUTO) 9.6 K/uL (4.8-10.8)
[2018-06-15 14:34] LABS: CALCIUM 9.1 mg/dL (8.4-11.0); CREATININE 0.87 mg/dL (0.55-1.30); POTASSIUM 3.9 mmol/L (3.5-5.1)
[2018-06-15] MEDS ORDERED: KETOROLAC TROMETHAMINE 15 MG VIAL IVP ONE (16:15)
[2018-06-15] MEDS ORDERED: LORazepam 1 MG TABLET PO ONE (17:00)
[2018-06-15 17:33] VITALS: BP_SYST 111
== END 2018-06-15 17:33 | disposition home or self-care (01) ==
LOC: SED 13:19
DX: J45.909 Unspecified asthma, uncomplicated (principal); F32.9 Major depressive disorder, single episode, unspecified; F41.9 Anxiety disorder, unspecified; Z88.8 Allergy status to other drugs, medicaments and biological substances
CPT/HCPCS: 36415; 71045; 80048; 83605; 84484; 85025; 85379; 87040; 93005; 94640; 96374; 99284; J1885; J7613

== ENCOUNTER 2018-06-27 19:24 | Emergency (ER) | payer MEDICAID ==
[~2018-06-27] VITALS: Ht 154.9 cm; Wt 65.8 kg
[2018-06-27 19:45] VITALS: BP_SYST 109
[2018-06-27] MEDS ORDERED: NACL 0.9% 1,000 ML IV ONE (20:13)
[2018-06-27] MEDS ORDERED: fentaNYL CITRATE/PF 100 MCG/2 ML AMP IVP ONE (20:15)
[2018-06-27] MEDS ORDERED: PANTOPRAZOLE SODIUM 40 MG/VIAL (PROTONIX) IVP ONE (20:15)
[2018-06-27] MEDS ORDERED: DIPHENHYDRAMINE INJ 50 MG/ML VIAL IVP ONE (20:15)
[2018-06-27] MEDS ORDERED: KETOROLAC TROMETHAMINE 30 MG VIAL IVP ONE (20:15)
[2018-06-27 20:43] LABS: BASOPHILS # (AUTO) 0.1 K/uL (0.0-0.2); BASOPHILS % (AUTO) 0.5 % (0.0-2.0); EOSINOPHILS # (AUTO) 0.3 K/uL (0.0-0.4); HEMATOCRIT 40.1 % (36-48); HEMOGLOBIN 13.3 g/dL (12.0-16.0); LYMPHOCYTES # (AUTO) 2.3 K/uL (1.0-5.5); LYMPHOCYTES % (AUTO) 14.3 % (20.5-51.5); MEAN CORPUSCULAR HEMOGLOBIN 30 pg (27-31); MEAN CORPUSCULAR HGB CONC 33 % (32-36); MEAN CORPUSCULAR VOLUME 91 fL (79.0-98.0); MONOCYTES # (AUTO) 0.8 K/uL (0.0-1.0); MONOCYTES % (AUTO) 5.1 % (1.7-9.3); NEUTROPHILS # (AUTO) 12.8 K/uL (1.8-7.7); NEUTROPHILS % (AUTO) 78.1 % (40.0-70.0); PLATELET COUNT (AUTO) 303 K/uL (130-430); RED CELL DISTRIBUTION WIDTH 12.1 % (9.0-15.0); WHITE BLOOD COUNT (AUTO) 16.3 K/uL (4.8-10.8)
[2018-06-27 20:52] LABS: CALCIUM 8.6 mg/dL (8.4-11.0); CREATININE 0.92 mg/dL (0.55-1.30); POTASSIUM 3.9 mmol/L (3.5-5.1)
[2018-06-27 20:57] LABS: ALBUMIN 3.3 g/dL (3.4-4.8); TOTAL BILIRUBIN 0.4 mg/dL (0.0-1.0)
[2018-06-27 21:34] LABS: BILIRUBIN,URINE NEGATIVE (NEGATIVE); CLARITY/URINE CLEAR (CLEAR); COLOR,URINE YELLOW (YELLOW); GLUCOSE,URINE NEGATIVE (NEGATIVE); KETONES,URINE NEGATIVE (NEGATIVE); LEUKOCYTE ESTERASE ,URINE NEGATIVE (NEGATIVE); NITRITE, URINE NEGATIVE (NEGATIVE); PROTEIN URINE NEGATIVE (NEGATIVE); UROBILINOGEN,URINE 0.2 (0.2-1.0)
[2018-06-27 21:36] LABS: BLOOD, URINE TRACE (NEGATIVE)
[2018-06-27 21:46] LABS: BACTERIA,URINE RARE /HPF (None Seen); MUCUS,URINE None Seen /LPF (None Seen); RBC,URINE 0-3 /HPF (0-3); WBC,URINE 0-3 /HPF (0-3)
[2018-06-27] MEDS ORDERED: LEVOFLOXACIN 500 MG TABLET PO ONE (22:30)
[2018-06-27 23:34] VITALS: BP_SYST 109
== END 2018-06-27 23:34 | disposition home or self-care (01) ==
LOC: SED 19:24
DX: R91.1 Solitary pulmonary nodule (principal); R10.9 Unspecified abdominal pain; J45.909 Unspecified asthma, uncomplicated; F32.9 Major depressive disorder, single episode, unspecified; F41.9 Anxiety disorder, unspecified; Z90.89 Acquired absence of other organs; Z88.8 Allergy status to other drugs, medicaments and biological substances
CPT/HCPCS: 36415; 74176; 80053; 81000; 85025; 96374; 96375; 99284; C9113; J1200; J1885; J3010; J7030

== ENCOUNTER 2018-09-07 15:22 | Emergency (ER) | payer MEDICAID ==
[~2018-09-07] VITALS: Ht 154.9 cm; Wt 64.0 kg
[2018-09-07 15:22] VITALS: BP_SYST 113
--- NOTE | 2018-09-07 15:22 | NUR ---
BROUGHT IN BY [facility], PLACED IN BED #6 AND TRIAGED. REPORT GIVEN TO JOHN
--- NOTE | 2018-09-07 15:25 | NUR ---
patient arrived BLS AOx4 with c/o anxiety. patient states "i couldn't feel my hands or my legs" patient felt like she was having a heart attack. patient is having problems at home with her youngest daughter. patient allowed to relax, patient allowed to vent to nursing staff. no other complaint or injury at this time.
[2018-09-07] MEDS: LORazepam 2 MG/ML VIAL (FOR ER USE) IM ONE (15:57)
--- NOTE | 2018-09-07 16:00 | NUR ---
ER at bedside examining patient.
[2018-09-07 16:38] VITALS: BP_SYST 110
--- NOTE | 2018-09-07 16:38 | NUR ---
Patient given written and verbal discharge instructions and verbalizes understanding. ER MD discussed with patient the results and treatment provided. Patient in stable condition. ID arm band removed. Rx of Ativan given. Patient educated on pain management and to follow up with PMD. Pain Scale 0/10. Opportunity for questions provided and answered. Medication side effect fact sheet provided.
== END 2018-09-07 16:38 | disposition home or self-care (01) ==
LOC: SED 15:22
DX: F32.9 Major depressive disorder, single episode, unspecified (principal); F41.9 Anxiety disorder, unspecified; G89.29 Other chronic pain; F43.9 Reaction to severe stress, unspecified; J45.909 Unspecified asthma, uncomplicated; Z88.8 Allergy status to other drugs, medicaments and biological substances
CPT/HCPCS: 96372; 99284; J2060; 99283

== ENCOUNTER 2018-09-28 17:57 | Emergency (ER) | payer MEDICAID ==
[~2018-09-28] VITALS: Ht 154.9 cm; Wt 64.9 kg
[2018-09-28 18:16] VITALS: BP_SYST 103
--- NOTE | 2018-09-28 18:21 | NUR ---
Patient triaged and placed in waiting room. VSS and patient appears in no acute distress at this time. Accompanied by visitor, awaiting available bed, and MD notified of need for MSE.
--- NOTE | 2018-09-28 18:30 | NUR ---
Patient to ER bed 06 for evaluation. Side rails up.
--- NOTE | 2018-09-28 18:33 | NUR ---
Patient AAOx4, brought in by self to ER c/o 03/09 left hip/back/leg pain s/p falling from bunk bed ladder trying to fix curtain yesterday afternoon. Patient reports "This pain is a different kind of pain I've never experienced." Patient denies any other reports of pain/SOB/chest pain. No signs or symptoms of acute distress noted. Breathing is even and unlabored.
--- NOTE | 2018-09-28 18:35 | NUR ---
ER Dr. Champagne at bedside examining patient.
--- NOTE | 2018-09-28 19:15 | NUR ---
Endorsed bedside report to Cele CAMARGO using SBAR approach for continuation of care.
--- NOTE | 2018-09-28 19:15 | NUR ---
Pt went to radiology via wheelchair. Tolerated well. Will cont. to monitor.
[2018-09-28] MEDS ORDERED: KETOROLAC TROMETHAMINE 60 MG/2 ML VIAL IM ONE (20:00)
--- NOTE | 2018-09-28 20:00 | NUR ---
Pt resting comfortably in bed. No signs of acute distress.
--- NOTE | 2018-09-28 21:00 | NUR ---
Pt resting comfortably in bed. No signs of acute distress.
[2018-09-28] MEDS ORDERED: traMADol HCL HCL 50 MG TABLET (ULTRAM) PO ONE (22:45)
[2018-09-28 23:00] VITALS: BP_SYST 103
--- NOTE | 2018-09-28 23:00 | NUR ---
Patient given written and verbal discharge instructions and verbalizes understanding. ER MD Dr. Lopez discussed with patient the results and treatment provided. Patient in stable condition. ID arm band removed. Rx of tramadol given. Patient educated on pain management and to follow up with PMD. Pain Scale 2/10, tolerable for pt and pt has RX for pain medication. Opportunity for questions provided and answered. Medication side effect fact sheet provided.
--- NOTE | 2018-09-28 23:00 | NUR ---
Note undone in EDM - 09/29/18 at 0122 by [email or web address] Patient given written and verbal discharge instructions and verbalizes understanding. ER MD Dr. Lopez discussed with patient the results and treatment provided. Patient in stable condition. ID arm band removed. Rx of tramadol given. Patient educated on pain management and to follow up with PMD. Pain Scale 0/10. Opportunity for questions provided and answered. Medication side effect fact sheet provided.
--- NOTE | 2018-09-29 10:36 | NUR ---
Radology discrepancy: right intertrochanteric density which may represent metastasis was not indentified on the preliminary CT. CT results were faxed to Dr. Montgomery to facilitate follow up.
== END 2018-09-28 23:00 | disposition home or self-care (01) ==
LOC: SED 17:57
DX: S33.9XXA Sprain of unspecified parts of lumbar spine and pelvis, initial encounter (principal); J45.909 Unspecified asthma, uncomplicated; R03.0 Elevated blood-pressure reading, without diagnosis of hypertension; Z90.89 Acquired absence of other organs; Z90.710 Acquired absence of both cervix and uterus; Z88.8 Allergy status to other drugs, medicaments and biological substances; W01.0XXA Fall on same level from slipping, tripping and stumbling without subsequent striking against object, initial encounter; Y93.89 Activity, other specified; Y92.89 Other specified places as the place of occurrence of the external cause; Y99.8 Other external cause status
CPT/HCPCS: 72192; 81025; 96372; 99284; J1885

== ENCOUNTER 2018-10-11 14:39 | Emergency (ER) | payer MEDICAID ==
[~2018-10-11] VITALS: Ht 154.9 cm; Wt 64.9 kg
[2018-10-11 14:54] VITALS: BP_SYST 109
[2018-10-11] MEDS ORDERED: NACL 0.9% 1,000 ML IV ONE (15:15)
[2018-10-11] MEDS ORDERED: ONDANSETRON HCL 4 MG/2 ML VIAL IVP ONE (15:15)
[2018-10-11 15:32] LABS: BASOPHILS % (AUTO) 0.4 % (0.0-2.0); EOSINOPHILS # (AUTO) 0.5 K/uL (0.0-0.4); EOSINOPHILS % (AUTO) 8.1 % (0.0-4.0); HEMATOCRIT 43.3 % (36-48); HEMOGLOBIN 14.8 g/dL (12.0-16.0); LYMPHOCYTES # (AUTO) 0.8 K/uL (1.0-5.5); LYMPHOCYTES % (AUTO) 13.3 % (20.5-51.5); MEAN CORPUSCULAR HEMOGLOBIN 31 pg (27-31); MEAN CORPUSCULAR HGB CONC 34 % (32-36); MEAN CORPUSCULAR VOLUME 89 fL (79.0-98.0); MONOCYTES # (AUTO) 0.5 K/uL (0.0-1.0); MONOCYTES % (AUTO) 7.9 % (1.7-9.3); NEUTROPHILS # (AUTO) 4.5 K/uL (1.8-7.7); NEUTROPHILS % (AUTO) 70.3 % (40.0-70.0); PLATELET COUNT (AUTO) 222 K/uL (130-430); RED BLOOD CELL COUNT(AUTO) 4.85 MIL/uL (4.2-6.2); WHITE BLOOD COUNT (AUTO) 6.4 K/uL (4.8-10.8)
[2018-10-11 15:35] LABS: BILIRUBIN,URINE NEGATIVE (NEGATIVE); BLOOD, URINE 1+ (NEGATIVE); CLARITY/URINE CLEAR (CLEAR); COLOR,URINE YELLOW (YELLOW); GLUCOSE,URINE NEGATIVE (NEGATIVE); KETONES,URINE NEGATIVE (NEGATIVE); LEUKOCYTE ESTERASE ,URINE NEGATIVE (NEGATIVE); NITRITE, URINE NEGATIVE (NEGATIVE); PH,URINE 5.5 (5.0-8.0); PROTEIN URINE NEGATIVE (NEGATIVE); UROBILINOGEN,URINE 0.2 (0.2-1.0)
[2018-10-11 15:48] LABS: BACTERIA,URINE RARE /HPF (None Seen); MUCUS,URINE None Seen /LPF (None Seen); RBC,URINE 0-3 /HPF (0-3); WBC,URINE 0-3 /HPF (0-3)
[2018-10-11 15:50] LABS: CALCIUM 9.6 mg/dL (8.4-11.0); CREATININE 0.88 mg/dL (0.55-1.30)
[2018-10-11 15:53] LABS: ALBUMIN 3.9 g/dL (3.4-4.8); POTASSIUM 3.5 mmol/L (3.5-5.1)
[2018-10-11] MEDS ORDERED: DIPHENHYDRAMINE INJ 50 MG/ML VIAL IVP ONE (17:00)
[2018-10-11] MEDS ORDERED: IOHEXOL 350 mgI/mL, 150 ML INFUS..BTL IV ONE (17:08)
[2018-10-11] MEDS ORDERED: LORazepam 2 MG/ML VIAL (FOR ER USE) IVP ONE (17:30)
[2018-10-11] MEDS ORDERED: LORazepam 2 MG/ML VIAL (FOR ER USE) ONE (17:37)
[2018-10-11 18:14] VITALS: BP_SYST 111
== END 2018-10-11 18:14 | disposition home or self-care (01) ==
LOC: SED 14:39
DX: A09 Infectious gastroenteritis and colitis, unspecified (principal); M79.10 Myalgia, unspecified site; R68.83 Chills (without fever); J45.909 Unspecified asthma, uncomplicated; F32.9 Major depressive disorder, single episode, unspecified; F41.9 Anxiety disorder, unspecified; Z90.89 Acquired absence of other organs; Z90.710 Acquired absence of both cervix and uterus
CPT/HCPCS: 36415; 71045; 71260; 80053; 81000; 81025; 83690; 83880; 85025; 85379; 96361; 96374; 96375; 99284; J1200; J2060; J2405; J7030; Q9967

== ENCOUNTER 2019-01-31 10:33 | Emergency (ER) | payer MEDICAID ==
[~2019-01-31] VITALS: Ht 154.9 cm; Wt 62.6 kg
[2019-01-31 10:37] VITALS: BP_SYST 106
--- NOTE | 2019-01-31 10:43 | NUR ---
Patient to ER bed 8 to gown for evaluation. Side rails up. Report given to Ishaan CAMARGO.
--- NOTE | 2019-01-31 10:46 | NUR ---
Patient is awake, alert, and oriented x4. Patient is complaining of lower abdominal pain radiating to the back x4 days with pressure on her pubic area. Patient presents with lower abdominal tenderness to touch, cramping pain 8/10. Patient states she has stage IV breast cancer with metastisis. Patient denies nausea, vomiting, diarrhea.
--- NOTE | 2019-01-31 10:51 | NUR ---
ER Dr. Almanzar at bedside examining patient.
[2019-01-31] MEDS ORDERED: NACL 0.9% 1,000 ML IV ONE (11:15)
[2019-01-31] MEDS ORDERED: KETOROLAC TROMETHAMINE 30 MG VIAL IVP ONE (11:15)
--- NOTE | 2019-01-31 11:22 | NUR ---
Medication administered. Pt tolerated well. No adverse reactions noted.
[2019-01-31 11:34] LABS: BASOPHILS # (AUTO) 0.1 K/uL (0.0-0.2); EOSINOPHILS # (AUTO) 0.2 K/uL (0.0-0.4); HEMATOCRIT 39.9 % (36-48); HEMOGLOBIN 13.7 g/dL (12.0-16.0); LYMPHOCYTES % (AUTO) 11.7 % (20.5-51.5); MEAN CORPUSCULAR HEMOGLOBIN 31 pg (27-31); MEAN CORPUSCULAR HGB CONC 34 % (32-36); MEAN CORPUSCULAR VOLUME 90 fL (79.0-98.0); MONOCYTES # (AUTO) 0.8 K/uL (0.0-1.0); MONOCYTES % (AUTO) 9.5 % (1.7-9.3); NEUTROPHILS # (AUTO) 6.7 K/uL (1.8-7.7); NEUTROPHILS % (AUTO) 75.8 % (40.0-70.0); PLATELET COUNT (AUTO) 220 K/uL (130-430); RED BLOOD CELL COUNT(AUTO) 4.43 MIL/uL (4.2-6.2); RED CELL DISTRIBUTION WIDTH 12.5 % (9.0-15.0); WHITE BLOOD COUNT (AUTO) 8.8 K/uL (4.8-10.8)
[2019-01-31 11:46] LABS: CALCIUM 9.7 mg/dL (8.4-11.0); CREATININE 0.9 mg/dL (0.55-1.30); POTASSIUM 3.8 mmol/L (3.5-5.1)
[2019-01-31 11:52] LABS: ALBUMIN 3.5 g/dL (3.4-4.8); TOTAL BILIRUBIN 0.5 mg/dL (0.0-1.0)
[2019-01-31] MEDS ORDERED: IOHEXOL 100 ML IV ONE (12:59)
[2019-01-31 13:33] LABS: BILIRUBIN,URINE NEGATIVE (NEGATIVE); BLOOD, URINE TRACE (NEGATIVE); CLARITY/URINE CLEAR (CLEAR); COLOR,URINE YELLOW (YELLOW); GLUCOSE,URINE NEGATIVE (NEGATIVE); KETONES,URINE 1+ (NEGATIVE); LEUKOCYTE ESTERASE ,URINE NEGATIVE (NEGATIVE); NITRITE, URINE NEGATIVE (NEGATIVE); PROTEIN URINE NEGATIVE (NEGATIVE); UROBILINOGEN,URINE 0.2 (0.2-1.0)
[2019-01-31 13:38] LABS: BACTERIA,URINE RARE /HPF (None Seen); RBC,URINE 0-3 /HPF (0-3); WBC,URINE 0-3 /HPF (0-3)
[2019-01-31] MEDS ORDERED: PIPERACILLIN/TAZO 3.375 GM in NS 50 ML IV ONE (14:00)
[2019-01-31] MEDS ORDERED: PIPERACILLIN/TAZOBACTAM 3.375 GM/VIAL (ZOSYN) IV ONE (14:22)
--- NOTE | 2019-01-31 14:38 | NUR ---
Blood samples collected and sent to lab. Pt ambulated to bathroom with steady gait. Pt assisted to position of comfort. Zosyn 3.375 g/50mL NS IVF @ 100mL/hr initiated. Pt tolerated well. No adverse reactions noted.
--- NOTE | 2019-01-31 14:55 | NUR ---
[place] and water provided. Dr. Yohan white for pt to eat.
--- NOTE | 2019-01-31 16:26 | NUR ---
Pt informed that she will be transferred to [facility], accepted by Dr. Chambers, to room 310B. Report to be called at . Pt on the phone with her insurance. Per daughter, pt will most likely refuse to be transferred to this hospital. I attempted to interrupt pt from phone call to discuss transfer options, but pt refuses to get off phone and gestures me to leave room. Will try to talk to her after phone call. Dr. Almanzar and alarm security or surveillance monitor aware of issue; call for transport to be held until pt agrees to transfer.
--- NOTE | 2019-01-31 16:44 | NUR ---
Attempted to speak with patient again, pt still speaking with her insurance over the phone and unwilling to talk to RN at this time.
--- NOTE | 2019-01-31 18:48 | NUR ---
[place] provided per pt request
--- NOTE | 2019-01-31 19:10 | NUR ---
Patient to be transferred to [facility]. Is being transferred due to higher level of care. Receiving facility has accepting physician and available space. ER physician has signed transfer form. Patient or responsible alliance party has agreed to transfer and signed form. Patient belongings inventoried and will be sent with patient. Copy of nursing notes, lab reports, EKG, Physicians Orders and X-rays to be sent with patient. Report called to RN at receiving facility. Receiving physician is Dr. Chambers. [facility] has been called for transfer. ETA is now.
[2019-01-31 19:16] VITALS: BP_SYST 111
== END 2019-01-31 19:16 | disposition short-term general hospital (02) ==
LOC: SED 10:33
DX: K57.32 Diverticulitis of large intestine without perforation or abscess without bleeding (principal); J45.909 Unspecified asthma, uncomplicated; Z85.3 Personal history of malignant neoplasm of breast; Z90.49 Acquired absence of other specified parts of digestive tract; Z90.710 Acquired absence of both cervix and uterus
CPT/HCPCS: 36415; 74178; 80053; 81000; 81025; 83690; 85025; 87040; 96361; 96365; 96375; 99285; J1885; J2543; Q9967

== ENCOUNTER 2019-03-20 17:53 | Emergency (ER) | payer MEDICAID ==
[~2019-03-20] VITALS: Ht 154.9 cm; Wt 60.8 kg
[2019-03-20 18:04] VITALS: BP_SYST 103
[2019-03-20] MEDS ORDERED: KETOROLAC TROMETHAMINE 60 MG/2 ML VIAL IM ONE (21:45)
[2019-03-20] MEDS ORDERED: ACETAMINOPHEN 325 MG TABLET PO ONE (21:45)
[2019-03-20] MEDS ORDERED: ACETAMINOPHEN 325 MG TABLET ONE (22:32)
[2019-03-20 22:35] VITALS: BP_SYST 103
== END 2019-03-20 22:35 | disposition home or self-care (01) ==
LOC: SED 17:53
DX: S39.012A Strain of muscle, fascia and tendon of lower back, initial encounter (principal); J45.909 Unspecified asthma, uncomplicated; Z90.49 Acquired absence of other specified parts of digestive tract; Z88.8 Allergy status to other drugs, medicaments and biological substances; X50.0XXA Overexertion from strenuous movement or load, initial encounter; Y93.89 Activity, other specified; Y92.89 Other specified places as the place of occurrence of the external cause; Y99.8 Other external cause status
CPT/HCPCS: 96372; 99283; J1885

== ENCOUNTER 2019-04-18 10:54 | Emergency (ER) | payer MEDICAID ==
[~2019-04-18] VITALS: Ht 154.9 cm; Wt 60.3 kg
[2019-04-18 11:05] VITALS: BP_SYST 117
--- NOTE | 2019-04-18 11:10 | NUR ---
Patient to ER bed 05 to gown for evaluation. Side rails up.
--- NOTE | 2019-04-18 11:18 | NUR ---
Patient arrived in the ED accompanied by her daughter, c/o 03/09 right shoulder and right arm pain that started last Wednesday night. Not taking any pain Denied any chest pain, shortness of breath or headaches. Denied any recent falls or injuries. Patient is alert and oriented x4, respirations even and unlabored, speaking in full sentences, ambulating with a steady gait, VS WNL. Instructed to notify ED staff if symptoms worsen while waiting to be seen by a provider. Patient verbalized understanding.
--- NOTE | 2019-04-18 11:24 | NUR ---
ER Dr. Almanzar at bedside examining patient.
[2019-04-18] MEDS ORDERED: KETOROLAC TROMETHAMINE 60 MG/2 ML VIAL IM ONE (11:45)
--- NOTE | 2019-04-18 11:48 | NUR ---
X-ray tech at bedside.
--- NOTE | 2019-04-18 12:00 | NUR ---
Administered Toradol 60mg IM as ordered by Dr. Almanzar. Patient tolerated the medication well.
[2019-04-18 12:59] VITALS: BP_SYST 117
--- NOTE | 2019-04-18 12:59 | NUR ---
Patient given written and verbal discharge instructions and verbalizes understanding. ER MD discussed with patient the results and treatment provided. Patient in stable condition. ID arm band removed. No Rx given. Patient educated on pain management and to follow up with PMD. Pain Scale 6/10. Opportunity for questions provided and answered. Medication side effect fact sheet provided.
== END 2019-04-18 12:59 | disposition home or self-care (01) ==
LOC: SED 10:54
DX: S46.911A Strain of unspecified muscle, fascia and tendon at shoulder and upper arm level, right arm, initial encounter (principal); J45.909 Unspecified asthma, uncomplicated; Z90.710 Acquired absence of both cervix and uterus; Z88.8 Allergy status to other drugs, medicaments and biological substances; Z85.3 Personal history of malignant neoplasm of breast; Z85.118 Personal history of other malignant neoplasm of bronchus and lung; W18.39XA Other fall on same level, initial encounter; Y93.89 Activity, other specified; Y92.89 Other specified places as the place of occurrence of the external cause; Y99.8 Other external cause status
CPT/HCPCS: 73030; 96372; 99283; J1885

== ENCOUNTER 2019-05-03 21:54 | Emergency (ER) | payer MEDICAID ==
[~2019-05-03] VITALS: Ht 154.9 cm; Wt 58.5 kg
[2019-05-03 21:55] VITALS: BP_SYST 126
--- NOTE | 2019-05-03 21:56 | NUR ---
Patient triaged ER light way and placed in ER light way. VSS and patient appears in no acute distress at this time. Accompanied by [facility], awaiting available bed, and MD notified of need for MSE.
[2019-05-03] MEDS ORDERED: KETOROLAC TROMETHAMINE 60 MG/2 ML VIAL IM ONE (22:30)
--- NOTE | 2019-05-03 22:39 | NUR ---
Patient to ER bed 4 to gown for evaluation. Side rails up.
--- NOTE | 2019-05-03 22:43 | NUR ---
Pt A&Ox4. Pt BIB BLS with c/o pain. Pt states she was diganosed with bone cancer in May 2018. Pt states she receieved a bone biopsy approximately 6 weeks ago. Pt states this is when the severe pain started. Pt states pain is in her back and right hip. Pt states she uses homiopathic remedies for pain and does not like medication because she states "I am scared it will weaken my immune system." Pt states pain is 10/10. Pt states pain gets worse with movement and is most comfortable in a side lying position. Pt describes pain as throbbing and shooting pain that radiates to right hip. Upon assessment no discoloration, laceration or swelling noted on back. Will continue to monitor.
--- NOTE | 2019-05-03 22:50 | NUR ---
ER Dr. Soto at bedside examining patient.
[2019-05-03] MEDS ORDERED: NACL 0.9% 1,000 ML IV ONE (23:15)
[2019-05-03] MEDS ORDERED: fentaNYL CITRATE/PF 100 MCG/2 ML AMP IVP ONE (23:15)
[2019-05-03] MEDS ORDERED: ONDANSETRON HCL 4 MG/2 ML VIAL IVP ONE (23:15)
[2019-05-03 23:30] LABS: BASOPHILS # (AUTO) 0.1 K/uL (0.0-0.2); BASOPHILS % (AUTO) 0.6 % (0.0-2.0); EOSINOPHILS # (AUTO) 0.3 K/uL (0.0-0.4); EOSINOPHILS % (AUTO) 2.5 % (0.0-4.0); HEMATOCRIT 36.1 % (36-48); HEMOGLOBIN 12.1 g/dL (12.0-16.0); LYMPHOCYTES # (AUTO) 2.1 K/uL (1.0-5.5); LYMPHOCYTES % (AUTO) 18.5 % (20.5-51.5); MEAN CORPUSCULAR HEMOGLOBIN 30 pg (27-31); MEAN CORPUSCULAR HGB CONC 34 % (32-36); MEAN CORPUSCULAR VOLUME 90 fL (79.0-98.0); MONOCYTES # (AUTO) 0.8 K/uL (0.0-1.0); NEUTROPHILS % (AUTO) 71.4 % (40.0-70.0); PLATELET COUNT (AUTO) 178 K/uL (130-430); RED BLOOD CELL COUNT(AUTO) 4.02 MIL/uL (4.2-6.2); RED CELL DISTRIBUTION WIDTH 13.9 % (9.0-15.0); WHITE BLOOD COUNT (AUTO) 11.2 K/uL (4.8-10.8)
[2019-05-03 23:43] LABS: CREATININE 0.83 mg/dL (0.55-1.30); POTASSIUM 3.6 mmol/L (3.5-5.1)
[2019-05-03 23:57] LABS: ALBUMIN 3.4 g/dL (3.4-4.8); TOTAL BILIRUBIN 0.3 mg/dL (0.0-1.0)
[2019-05-03 23:58] LABS: BILIRUBIN,URINE NEGATIVE (NEGATIVE); BLOOD, URINE NEGATIVE (NEGATIVE); CLARITY/URINE CLEAR (CLEAR); COLOR,URINE YELLOW (YELLOW); GLUCOSE,URINE NEGATIVE (NEGATIVE); KETONES,URINE NEGATIVE (NEGATIVE); LEUKOCYTE ESTERASE ,URINE NEGATIVE (NEGATIVE); NITRITE, URINE NEGATIVE (NEGATIVE); PROTEIN URINE NEGATIVE (NEGATIVE); UROBILINOGEN,URINE 0.2 (0.2-1.0)
[2019-05-04] MEDS ORDERED: DIPHENHYDRAMINE INJ 50 MG/ML VIAL IVP ONE
--- NOTE | 2019-05-04 00:03 | NUR ---
Went over consent with patient for contrast. Consent signed. Radiology notified.
[2019-05-04] MEDS ORDERED: IOHEXOL 100 ML IV ONE (00:23)
--- NOTE | 2019-05-04 01:21 | NUR ---
Patient resting comfortably in bed. No acute distress, will continue to monitor.
--- NOTE | 2019-05-04 02:06 | NUR ---
ER Dr. Soto at bedside explaining results to patient.
[2019-05-04] MEDS ORDERED: traMADol HCL HCL 50 MG TABLET (ULTRAM) PO ONE (02:15)
[2019-05-04 02:37] VITALS: BP_SYST 122
--- NOTE | 2019-05-04 02:37 | NUR ---
Patient given written and verbal discharge instructions and verbalizes understanding. ER MD Soto discussed with patient the results and treatment provided. Patient in stable condition. ID arm band removed. IV catheter removed intact and dressing applied, no active bleeding. Rx of Motrin 800mg given. Patient educated on pain management and to follow up with PMD. Pain Scale 5/10. Opportunity for questions provided and answered. Medication side effect fact sheet provided.
== END 2019-05-04 02:37 | disposition home or self-care (01) ==
LOC: SED 21:54
DX: C79.51 Secondary malignant neoplasm of bone (principal); G89.29 Other chronic pain; M54.5 Low back pain; M25.551 Pain in right hip; M25.552 Pain in left hip; J45.909 Unspecified asthma, uncomplicated; Z88.5 Allergy status to narcotic agent; Z88.8 Allergy status to other drugs, medicaments and biological substances
CPT/HCPCS: 36415; 71045; 74177; 80053; 81002; 81003; 81025; 82550; 85025; 93005; 96372; 96374; 96375 ×2; 99284; J1200; J1885; J2405; J3010; J7030; Q9967

== ENCOUNTER 2019-05-11 21:10 | Emergency (ER) | payer MEDICAID ==
[~2019-05-11] VITALS: Ht 154.9 cm; Wt 57.6 kg
[2019-05-11 21:35] VITALS: BP_SYST 129
--- NOTE | 2019-05-12 03:10 | NUR ---
Pt c/o left arm pain that radiating to her left chest since yesterday. Pt believes the pain is related to chemotherapy that she receives for lung cancer.
--- NOTE | 2019-05-12 03:10 | NUR ---
Patient to ER bed 06 to gown for evaluation. Side rails up. Report given to MARY JO Gill
[2019-05-12] MEDS ORDERED: NACL 0.9% 1,000 ML IV ONE (03:30)
[2019-05-12] MEDS ORDERED: KETOROLAC TROMETHAMINE 30 MG VIAL IVP ONE (03:30)
--- NOTE | 2019-05-12 03:30 | NUR ---
Dr. Mcguire at bedside.
[2019-05-12 03:49] LABS: BASOPHILS % (AUTO) 0.8 % (0.0-2.0); EOSINOPHILS # (AUTO) 0.3 K/uL (0.0-0.4); EOSINOPHILS % (AUTO) 4.8 % (0.0-4.0); HEMATOCRIT 35.2 % (36-48); LYMPHOCYTES % (AUTO) 17.6 % (20.5-51.5); MEAN CORPUSCULAR HEMOGLOBIN 30 pg (27-31); MEAN CORPUSCULAR HGB CONC 34 % (32-36); MEAN CORPUSCULAR VOLUME 89 fL (79.0-98.0); MONOCYTES # (AUTO) 0.4 K/uL (0.0-1.0); MONOCYTES % (AUTO) 6.7 % (1.7-9.3); NEUTROPHILS # (AUTO) 3.9 K/uL (1.8-7.7); NEUTROPHILS % (AUTO) 70.1 % (40.0-70.0); PLATELET COUNT (AUTO) 224 K/uL (130-430); RED BLOOD CELL COUNT(AUTO) 3.95 MIL/uL (4.2-6.2); WHITE BLOOD COUNT (AUTO) 5.5 K/uL (4.8-10.8)
[2019-05-12 04:03] LABS: CALCIUM 8.3 mg/dL (8.4-11.0); CREATININE 0.71 mg/dL (0.55-1.30); POTASSIUM 3.6 mmol/L (3.5-5.1)
[2019-05-12 04:09] LABS: ALBUMIN 3.2 g/dL (3.4-4.8); TOTAL BILIRUBIN 0.3 mg/dL (0.0-1.0)
--- NOTE | 2019-05-12 04:13 | NUR ---
Urine specimen collected and analyzed in ER. Results given to ER .
--- NOTE | 2019-05-12 04:14 | NUR ---
Two attempts to place IV. Unable to obtain access. MARY JO Gill notified.
[2019-05-12] MEDS ORDERED: KETOROLAC TROMETHAMINE 30 MG VIAL IM ONE (04:15)
[2019-05-12 04:18] LABS: BILIRUBIN,URINE NEGATIVE (NEGATIVE); CLARITY/URINE CLEAR (CLEAR); COLOR,URINE YELLOW (YELLOW); GLUCOSE,URINE NEGATIVE (NEGATIVE); KETONES,URINE NEGATIVE (NEGATIVE); LEUKOCYTE ESTERASE ,URINE NEGATIVE (NEGATIVE); NITRITE, URINE NEGATIVE (NEGATIVE); PH,URINE 6.5 (5.0-8.0); PROTEIN URINE NEGATIVE (NEGATIVE); UROBILINOGEN,URINE 0.2 (0.2-1.0)
[2019-05-12 04:19] LABS: BLOOD, URINE TRACE (NEGATIVE)
[2019-05-12 04:23] LABS: BACTERIA,URINE FEW /HPF (None Seen); WBC,URINE 0-3 /HPF (0-3)
--- NOTE | 2019-05-12 06:02 | NUR ---
Pt refused to get her shot
[2019-05-12 06:05] VITALS: BP_SYST 122
--- NOTE | 2019-05-12 06:05 | NUR ---
Patient given written and verbal discharge instructions and verbalizes understanding. ER MD discussed with patient the results and treatment provided. Patient in stable condition. ID arm band removed. Rx of Ibuprofen 600 mg given. Patient educated on pain management and to follow up with PMD. Pain Scale 9/10PS. Opportunity for questions provided and answered.
== END 2019-05-12 06:05 | disposition home or self-care (01) ==
LOC: SED 21:10
DX: R60.9 Edema, unspecified (principal); J45.909 Unspecified asthma, uncomplicated; Z88.5 Allergy status to narcotic agent; Z88.8 Allergy status to other drugs, medicaments and biological substances
CPT/HCPCS: 36415; 80053; 81000-TC; 85025; 93005; 93971; 99284

== ENCOUNTER 2019-06-01 14:18 | Emergency (ER) | payer MEDICAID ==
[~2019-06-01] VITALS: Ht 154.9 cm; Wt 59.9 kg
[2019-06-01 14:18] VITALS: BP_SYST 121
--- NOTE | 2019-06-01 14:18 | NUR ---
Patient to [facility] for evaluation. Side rails up.
--- NOTE | 2019-06-01 14:37 | NUR ---
Patient to ER bed 7 to gown for evaluation. Side rails up. Report given to MARY JO Cline.
--- NOTE | 2019-06-01 14:45 | NUR ---
Pt came to ER c/o pressure in chest, AO4, RR even and unlabored, no visible distress
--- NOTE | 2019-06-01 14:50 | NUR ---
ER Dr. Almanzar at bedside examining patient.
[2019-06-01] MEDS ORDERED: LEVALBUTEROL HCL 0.63 MG/3 ML VIAL.NEB INH ONE (15:00)
[2019-06-01] MEDS ORDERED: LORazepam 1 MG TABLET PO ONE (15:00)
[2019-06-01] MEDS ORDERED: KETOROLAC TROMETHAMINE 60 MG/2 ML VIAL IM ONE (15:00)
--- NOTE | 2019-06-01 16:16 | NUR ---
Patient given written and verbal discharge instructions and verbalizes understanding. ER MD Almanzar discussed with patient the results and treatment provided. Patient in stable condition. ID arm band removed. Rx of Xopenex, Ativan given. Patient educated on pain management and to follow up with PMD. Pain Scale 0. Opportunity for questions provided and answered. Medication side effect fact sheet provided.
[2019-06-01 16:18] VITALS: BP_SYST 136
== END 2019-06-01 16:16 | disposition home or self-care (01) ==
LOC: SED 14:18
DX: J06.9 Acute upper respiratory infection, unspecified (principal); J45.909 Unspecified asthma, uncomplicated; Z85.3 Personal history of malignant neoplasm of breast; Z85.118 Personal history of other malignant neoplasm of bronchus and lung; Z90.49 Acquired absence of other specified parts of digestive tract; Z90.710 Acquired absence of both cervix and uterus; Z88.5 Allergy status to narcotic agent; Z88.8 Allergy status to other drugs, medicaments and biological substances
CPT/HCPCS: 71045; 94640; 96372; 99283; J1885; J7614

== ENCOUNTER 2019-06-29 16:33 | Emergency (ER) | payer MEDICAID ==
[~2019-06-29] VITALS: Ht 154.9 cm; Wt 58.1 kg
--- NOTE | 2019-06-29 16:33 | NUR ---
Patient to bed 7 and gown. Side rails up.
--- NOTE | 2019-06-29 16:47 | NUR ---
Dr. Oropeza at bedside for examination.
[2019-06-29] MEDS ORDERED: FOLI-43 PO (16:50)
[2019-06-29] MEDS ORDERED: OSIM80TA PO (16:50)
[2019-06-29 16:54] VITALS: BP_SYST 102
[2019-06-29] MEDS ORDERED: ONDA4TAB5 PO (16:54)
[2019-06-29] MEDS ORDERED: LORA-258 PO (16:54)
[2019-06-29] MEDS ORDERED: TRAM50TA2 PO (16:54)
[2019-06-29] MEDS ORDERED: [UNRECOGNIZED DRUG - CODE] PO (16:54)
[2019-06-29] MEDS ORDERED: CYCL10TA9 PO (16:54)
--- NOTE | 2019-06-29 17:01 | NUR ---
PATIENT PRESENTS TO THE ER WITH HX OF SNEEZING LAST NIGHT AT 2330 WITH SUBSEQUENT PAIN TO RIGHT RIBS/FLANK AREA; PATIENT TOOK A FLEXARIL AND IS SEEKING ADDTIONAL PAIN RELIEF; NO OTHER TRAUMA, NO OTHER REMARKABLE S/S
[2019-06-29 17:15] LABS: BASOPHILS % (AUTO) 1.1 % (0.0-2.0); EOSINOPHILS # (AUTO) 0.2 K/uL (0.0-0.4); EOSINOPHILS % (AUTO) 5.5 % (0.0-4.0); HEMATOCRIT 33.6 % (36-48); HEMOGLOBIN 11.1 g/dL (12.0-16.0); LYMPHOCYTES % (AUTO) 24.2 % (20.5-51.5); MEAN CORPUSCULAR HEMOGLOBIN 30 pg (27-31); MEAN CORPUSCULAR HGB CONC 33 % (32-36); MEAN CORPUSCULAR VOLUME 91 fL (79.0-98.0); MONOCYTES # (AUTO) 0.3 K/uL (0.0-1.0); MONOCYTES % (AUTO) 6.9 % (1.7-9.3); NEUTROPHILS # (AUTO) 2.7 K/uL (1.8-7.7); NEUTROPHILS % (AUTO) 62.3 % (40.0-70.0); PLATELET COUNT (AUTO) 133 K/uL (130-430); RED BLOOD CELL COUNT(AUTO) 3.69 MIL/uL (4.2-6.2); RED CELL DISTRIBUTION WIDTH 15.6 % (9.0-15.0); WHITE BLOOD COUNT (AUTO) 4.3 K/uL (4.8-10.8)
[2019-06-29 17:31] LABS: CALCIUM 8.3 mg/dL (8.4-11.0); CREATININE 0.99 mg/dL (0.55-1.30)
[2019-06-29 17:36] LABS: ALBUMIN 3.4 g/dL (3.4-4.8); INR 1.1 (0.8-1.2); PROTHROMBIN TIME 10.6 SECS (9.5-12.5); TOTAL BILIRUBIN 0.3 mg/dL (0.0-1.0)
--- NOTE | 2019-06-29 18:00 | NUR ---
Patient in no signs of distress at this time.
[2019-06-29] MEDS ORDERED: KETOROLAC TROMETHAMINE 60 MG/2 ML VIAL IM ONE (18:45)
--- NOTE | 2019-06-29 19:01 | NUR ---
Patient given written and verbal discharge instructions and verbalizes understanding. ER MD discussed with patient the results and treatment provided. Patient in stable condition. ID arm band removed. Rx of norco and flexeril given. Patient educated on pain management and to follow up with PMD. Pain Scale 6/10.Opportunity for questions provided and answered. Medication side effect fact sheet provided.
[2019-06-29 19:06] VITALS: BP_SYST 110
== END 2019-06-29 19:01 | disposition home or self-care (01) ==
LOC: SED 16:33
DX: S33.5XXA Sprain of ligaments of lumbar spine, initial encounter (principal); S23.3XXA Sprain of ligaments of thoracic spine, initial encounter; J45.909 Unspecified asthma, uncomplicated; Z85.3 Personal history of malignant neoplasm of breast; Z85.118 Personal history of other malignant neoplasm of bronchus and lung; Z88.6 Allergy status to analgesic agent; Z79.899 Other long term (current) drug therapy; X58.XXXA Exposure to other specified factors, initial encounter; Y93.89 Activity, other specified; Y92.89 Other specified places as the place of occurrence of the external cause; Y99.8 Other external cause status
CPT/HCPCS: 36415; 71045; 71250; 74176; 80053; 81002; 81025; 85025; 85610; 85730; 96372; 99284; J1885

== ENCOUNTER 2020-07-08 11:14 | Emergency (ER) | payer MEDICAID, SELFPAY ==
[~2020-07-08] VITALS: Ht 154.9 cm; Wt 78.0 kg
[~2020-07-08 11:14] MED LIST changes: -CYCL-10 PO; +CYCL10TA9 PO; +FOLI-43 PO; +LORA-258 PO; -LORA1TAB PO; +ONDA4TAB5 PO; -ONDA8TAB9 PO; +OSIM80TA PO; +TRAM50TA2 PO; +[UNRECOGNIZED DRUG - CODE] PO
[2020-07-08 11:26] VITALS: BP_SYST 139
[2020-07-08 11:57] LABS: BASOPHILS # (AUTO) 0.1 K/uL (0.0-0.2); BASOPHILS % (AUTO) 0.8 % (0.0-2.0); EOSINOPHILS # (AUTO) 0.1 K/uL (0.0-0.4); EOSINOPHILS % (AUTO) 0.9 % (0.0-4.0); HEMATOCRIT 42.5 % (36-48); HEMOGLOBIN 13.9 g/dL (12.0-16.0); LYMPHOCYTES # (AUTO) 0.7 K/uL (1.0-5.5); LYMPHOCYTES % (AUTO) 4.8 % (20.5-51.5); MEAN CORPUSCULAR HEMOGLOBIN 32 pg (27-31); MEAN CORPUSCULAR HGB CONC 33 % (32-36); MEAN CORPUSCULAR VOLUME 97 fL (79.0-98.0); MONOCYTES # (AUTO) 0.9 K/uL (0.0-1.0); MONOCYTES % (AUTO) 6.6 % (1.7-9.3); NEUTROPHILS % (AUTO) 86.9 % (40.0-70.0); PLATELET COUNT (AUTO) 154 K/uL (130-430); RED BLOOD CELL COUNT(AUTO) 4.36 MIL/uL (4.2-6.2); RED CELL DISTRIBUTION WIDTH 13.8 % (9.0-15.0); WHITE BLOOD COUNT (AUTO) 13.9 K/uL (4.8-10.8)
[2020-07-08 12:15] LABS: ACETONE, SERUM NEGATIVE (NEGATIVE)
[2020-07-08 12:24] LABS: ALANINE AMINOTRANSFERASE 187 U/L (12-78); ASPARTATE AMINOTRANSFERASE 26 U/L (10-37); CHLORIDE 103 mmol/L (98-107); CREATININE 1.03 mg/dL (0.55-1.30); POTASSIUM 4.2 mmol/L (3.5-5.1); SODIUM SERUM 141 mmol/L (136-145)
[2020-07-08 12:31] LABS: INR 0.9 (0.8-1.2); PROTHROMBIN TIME 9.6 SECS (9.5-12.5)
[2020-07-08] MEDS ORDERED: OXYIR5 PO (12:41)
[2020-07-08 13:04] LABS: ALBUMIN 2.8 g/dL (3.4-4.8); ANION GAP 7 (5-15); CALCIUM 8.5 mg/dL (8.4-11.0); GLUCOSE 183 mg/dL (70-99); TOTAL BILIRUBIN 0.8 mg/dL (0.0-1.0); UREA NITROGEN, BLOOD 11 mg/dL (8-21)
[2020-07-08 13:06] LABS: GFR AFRICAN AMERICAN 74 mL/min (>90)
[2020-07-08 13:27] LABS: C-REACTIVE PROTEIN QUANT 12.9 mg/dL (0-0.5)
[2020-07-08] MEDS ORDERED: NACL 0.9% 1,000 ML IV ONE (14:30)
[2020-07-08 18:53] VITALS: BP_SYST 121
== END 2020-07-08 18:54 | disposition short-term general hospital (02) ==
LOC: SED 11:14
DX: B37.0 Candidal stomatitis (principal); E86.0 Dehydration; J45.909 Unspecified asthma, uncomplicated; Z85.3 Personal history of malignant neoplasm of breast; Z79.899 Other long term (current) drug therapy; Z88.6 Allergy status to analgesic agent; Z20.822 Contact with and (suspected) exposure to COVID-19
CPT/HCPCS: 36415; 80053; 82009-TC; 83605; 85025; 85610-TC; 85730-TC; 86140; 93005; 99285

== ENCOUNTER 2020-07-30 15:34 | Emergency (ER) | payer MEDICAID, SELFPAY ==
[~2020-07-30] VITALS: Ht 152.4 cm; Wt 62.6 kg
[2020-07-30 15:45] VITALS: BP_SYST 135
[2020-07-30] MEDS ORDERED: KETOROLAC TROMETHAMINE 60 MG/2 ML VIAL IM ONE (17:30)
[2020-07-30] MEDS ORDERED: NACL 0.9% 1,000 ML IV ONE (17:30)
[2020-07-30 18:02] LABS: BILIRUBIN,URINE NEGATIVE (NEGATIVE); BLOOD, URINE NEGATIVE (NEGATIVE); GLUCOSE,URINE NEGATIVE (NEGATIVE); KETONES,URINE NEGATIVE (NEGATIVE); LEUKOCYTE ESTERASE ,URINE NEGATIVE (NEGATIVE); NITRITE, URINE NEGATIVE (NEGATIVE); PH,URINE 6.5 (5.0-8.0); PROTEIN URINE NEGATIVE (NEGATIVE); UROBILINOGEN,URINE 0.2 (0.2-1.0)
[2020-07-30 18:05] LABS: CLARITY/URINE CLEAR (CLEAR); COLOR,URINE STRAW (YELLOW)
[2020-07-30 18:13] LABS: BASOPHILS # (AUTO) 0.1 K/uL (0.0-0.2); BASOPHILS % (AUTO) 0.9 % (0.0-2.0); EOSINOPHILS # (AUTO) 0.1 K/uL (0.0-0.4); EOSINOPHILS % (AUTO) 1.2 % (0.0-4.0); HEMATOCRIT 36.5 % (36-48); HEMOGLOBIN 12.6 g/dL (12.0-16.0); LYMPHOCYTES # (AUTO) 2.2 K/uL (1.0-5.5); LYMPHOCYTES % (AUTO) 23.9 % (20.5-51.5); MEAN CORPUSCULAR HEMOGLOBIN 33 pg (27-31); MEAN CORPUSCULAR HGB CONC 35 % (32-36); MEAN CORPUSCULAR VOLUME 95 fL (79.0-98.0); MONOCYTES # (AUTO) 0.8 K/uL (0.0-1.0); MONOCYTES % (AUTO) 8.7 % (1.7-9.3); NEUTROPHILS % (AUTO) 65.3 % (40.0-70.0); PLATELET COUNT (AUTO) 266 K/uL (130-430); RED BLOOD CELL COUNT(AUTO) 3.83 MIL/uL (4.2-6.2); RED CELL DISTRIBUTION WIDTH 14.6 % (9.0-15.0); WHITE BLOOD COUNT (AUTO) 9.2 K/uL (4.8-10.8)
[2020-07-30 18:24] LABS: CALCIUM 9.6 mg/dL (8.4-11.0); CREATININE 0.93 mg/dL (0.55-1.30); POTASSIUM 3.7 mmol/L (3.5-5.1)
[2020-07-30 18:30] LABS: ALBUMIN 3.5 g/dL (3.4-4.8); TOTAL BILIRUBIN 0.3 mg/dL (0.0-1.0)
[2020-07-30] MEDS ORDERED: traMADol HCL HCL 50 MG TABLET (ULTRAM) PO ONE (19:30)
[2020-07-30 21:07] VITALS: BP_SYST 105
== END 2020-07-30 21:07 | disposition home or self-care (01) ==
LOC: SED 15:34
DX: R10.31 Right lower quadrant pain (principal); J45.909 Unspecified asthma, uncomplicated; Z86.73 Personal history of transient ischemic attack (TIA), and cerebral infarction without residual deficits; Z90.710 Acquired absence of both cervix and uterus; Z88.6 Allergy status to analgesic agent; Z79.899 Other long term (current) drug therapy
CPT/HCPCS: 36415; 74176; 76376; 80053; 81003; 85025; 96360; 96361; 96372; 99284; J1885; J7030

== ENCOUNTER 2020-09-06 11:50 | Emergency (ER) | payer MEDICAID, SELFPAY ==
[~2020-09-06] VITALS: Ht 154.9 cm; Wt 56.7 kg
[2020-09-06 12:02] VITALS: BP_SYST 135
[2020-09-06] MEDS ORDERED: LORazepam 2 MG/ML VIAL IVP ONE (12:30)
[2020-09-06 12:31] LABS: BASOPHILS # (AUTO) 0.1 K/uL (0.0-0.2); BASOPHILS % (AUTO) 0.8 % (0.0-2.0); EOSINOPHILS # (AUTO) 0.1 K/uL (0.0-0.4); HEMATOCRIT 42.7 % (36-48); HEMOGLOBIN 14.8 g/dL (12.0-16.0); LYMPHOCYTES # (AUTO) 2.1 K/uL (1.0-5.5); LYMPHOCYTES % (AUTO) 30.6 % (20.5-51.5); MEAN CORPUSCULAR HEMOGLOBIN 32 pg (27-31); MEAN CORPUSCULAR HGB CONC 35 % (32-36); MEAN CORPUSCULAR VOLUME 93 fL (79.0-98.0); MONOCYTES # (AUTO) 0.5 K/uL (0.0-1.0); NEUTROPHILS % (AUTO) 58.6 % (40.0-70.0); PLATELET COUNT (AUTO) 253 K/uL (130-430); RED BLOOD CELL COUNT(AUTO) 4.58 MIL/uL (4.2-6.2); RED CELL DISTRIBUTION WIDTH 13.4 % (9.0-15.0); WHITE BLOOD COUNT (AUTO) 6.8 K/uL (4.8-10.8)
[2020-09-06 12:45] LABS: CALCIUM 9.9 mg/dL (8.4-11.0); CREATININE 0.96 mg/dL (0.55-1.30); POTASSIUM 3.5 mmol/L (3.5-5.1)
[2020-09-06 12:51] LABS: ALBUMIN 4.3 g/dL (3.4-4.8); TOTAL BILIRUBIN 0.5 mg/dL (0.0-1.0)
[2020-09-06 13:05] LABS: BARBITURATE, URINE NEGATIVE (NEG <=200); BENZODIAZEPINE, URINE POSITIVE (NEG <=150); CANNABINOID, URINE NEGATIVE (NEG <=50); COCAINE, URINE NEGATIVE (NEG <=150); METHAMPHETAMINES SCREEN,URINE NEGATIVE (NEG <=500); OPIATE, URINE NEGATIVE (NEG <=100); PHENCYCLIDINE SCREEN,URINE NEGATIVE (NEG <=25); UR TRICYCLIC ANTIDEPRESSANTS NEGATIVE (NEG <=300); URINE AMPHETAMINE NEGATIVE (NEG <=500); URINE METHADONE NEGATIVE (NEG <=200); URINE OXYCODONE SCREEN NEGATIVE (NEG <=100); URINE PROPOXYPHENE SCREEN NEGATIVE (NEG <=300)
[2020-09-06 16:45] VITALS: BP_SYST 140
[2020-09-06] MEDS ORDERED: LEVE500T9 PO (16:52)
[2020-09-06] MEDS ORDERED: AMOX500C2 PO (16:52)
== END 2020-09-06 16:45 | disposition home or self-care (01) ==
LOC: SED 11:50
DX: G40.909 Epilepsy, unspecified, not intractable, without status epilepticus (principal); J45.909 Unspecified asthma, uncomplicated; Z85.118 Personal history of other malignant neoplasm of bronchus and lung; Z86.79 Personal history of other diseases of the circulatory system; Z85.3 Personal history of malignant neoplasm of breast; Z90.710 Acquired absence of both cervix and uterus; Z79.899 Other long term (current) drug therapy; Z88.6 Allergy status to analgesic agent
CPT/HCPCS: 36415; 70450; 76376; 80053; 80307; 85025; 96374; 99284; J2060